=== PATIENT | female | born 1930 | race Caucasian/White ===

== ENCOUNTER 2017-01-28 23:00 | Inpatient (IN) | payer MEDICARE ==
[~2017-01-28] VITALS: Ht 165.1 cm; Wt 76.8 kg
--- NOTE | ~2017-01-28 | OR ---
PATIENT'S NAME: LYLE SOLIZ [facility] AGE: 86 Y [address] 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 PROCEDURE PERFORMED: Closed reduction of posterior dislocation of right total hip arthroplasty under anesthesia. ANESTHESIA: Propofol. COMPLICATIONS: None. INDICATION FOR PROCEDURE: The patient is an 86-year-old female who underwent a primary right total hip arthroplasty with Dr. Rikki Walker approximately 25 years ago. Her hip has served her very well until she sustained a dislocation in October. Her first dislocation was reduced in [place], [place]. Her hip dislocated a second time day before yesterday. She was transported to [place] by ambulance and her hip was reduced under anesthesia by Dr. Martin Singh. She was placed into a knee immobilizer. She states that the knee immobilizer did not stay up and are currently slid down to her farrell. She dislocated again this afternoon while bending forward on the toilet. She was transported here by ambulance. Physical examination and radiographs confirm a recurrent posterior dislocation. Postreduction radiographs from earlier this week demonstrate severe polyethylene wear of her acetabular component. Risks, benefits, limitations, and alternatives to closed reduction have been reviewed by, and informed consent has been granted. I have informed the patient of the potential for iatrogenic fracture. I have also informed the patient that she is at high-risk for recurrent dislocations (based upon the fact that she has dislocated 3 times in the past 3 months), and she understands that we will have further discussions regarding the option of proceeding with revision total hip arthroplasty in the near future. DESCRIPTION OF PROCEDURE: The patient positioned supine. Propofol anesthesia PATIENT'S NAME: LYLE SOLIZ [facility] AGE: 86 Y [address] ROOM: [place] [address] LOCATION: [facility] ADMIT DATE: 01/28/2017 OR/Procedure Report DISCHARGE DATE: FAMILY PHYSICIAN: PHYSICIAN, UNKNOWN ATTENDING PHYSICIAN: ROCAEL LYNNE was administered by the nurse communication and outreach manager. The hip was subsequently flexed to 90 degrees and internally rotated. After this, an anteriorly directed distraction force was applied. The femoral head readily cleared the posterior aspect of the acetabulum and reduced. There was no residual rotational deformity. Appropriate leg length was restored. Mild crepitation was noted with passive range of motion of the hip. The hip was examined under anesthesia to assess the extent of instability. With the hip flexed to 90 degrees and in 0 degrees of abduction, the hip could be internally rotated to only 10 degrees before it dislocated posteriorly. An identical reduction maneuver was performed and postreduction radiographs demonstrated reduction. Minimal force was required. There was no fracture. The patient was placed into a knee immobilizer. Discussions were held (with the patient in the presence of both daughters) regarding the option of admission for a prompt revision (given her perceived extremely high-risk for recurrent dislocation) versus discharge to home with readmission in the near future. They were strongly in favor of being admitted and revised as soon as possible. MD MANPREET BENITEZ/modl /[id number] d: 01/29/17 0403 t: 02/07/17 1207, OPERATIVE SUMMARY
--- NOTE | ~2017-01-28 | OR ---
PATIENT'S NAME: LYLE STEWARD [facility] AGE: 86 Y [address] ROOM: [place] [address] LOCATION: [facility] ADMIT DATE: 01/28/2017 OR/Procedure Report DISCHARGE DATE: 02/02/2017 FAMILY PHYSICIAN: ATIF GODINEZ MD ATTENDING PHYSICIAN: ROCAEL LYNNE SURGEON: Rocael Lynne MD TRANSMISSION ENGINEER: Martinez Cotter CST/PHU and Rocael Krishna. DATE OF PROCEDURE: 01/30/2017 Corrected DOS 02/11/17 AO PREOPERATIVE DIAGNOSIS: Mechanical failure, right total hip arthroplasty (severe polyethylene wear with fractured polyethylene liner and recurrent right hip dislocations). 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 PROCEDURE PERFORMED: Revision right total hip arthroplasty (revision of femoral head and acetabular liner). Extensive right hip synovectomy. Debridement of osteolysis of right proximal femur. ANESTHESIA: Spinal plus subcutaneous and periarticular local anesthesia (ropivacaine with epinephrine). ESTIMATED BLOOD LOSS: Less than 200 mL. DRAINS: None. SPECIMEN: Synovial fluid for culture. COMPLICATIONS: None. EXPLANTS: 32 mm diameter femoral head with +5 mm neck length. APR enhanced hooded acetabular polyethylene liner. IMPLANTS: Intermedics APR hooded enhanced protrusio acetabular polyethylene liner with 32 mm inner diameter. 32 mm diameter femoral head with +10 mm neck length. INDICATION FOR PROCEDURE: Ms. Steward is an 86-year-old female, who underwent a primary right total hip arthroplasty with Dr. Rikki Walker in January of 1991. Her hip did very well until this year. She has dislocated her right hip 3 times since October of this year (including 2 dislocations this week). Her PATIENT'S NAME: LYLE STEWARD [facility] AGE: 86 Y [address] ROOM: [place] [address] LOCATION: [facility] ADMIT DATE: 01/28/2017 OR/Procedure Report DISCHARGE DATE: 02/02/2017 FAMILY PHYSICIAN: ATIF GODINEZ MD ATTENDING PHYSICIAN: ROCAEL LYNNE hip was completely asymptomatic (with no history of prior dislocation) except for a fall in July of 2016. She had transient right hip pain at that time, but she did not dislocate at that time. Radiographs demonstrate severe polyethylene wear. When I examined her right hip under anesthesia (night before last), it was grossly unstable. Furthermore, there was crepitation with range of motion (suggesting fracture of the polyethylene liner). She has well-fixed uncemented Intermedics APR implants. There is no significant osteolysis noted on plain radiographs. Risks, benefits, limitations, and alternatives to this procedure have been thoroughly reviewed, and informed consent has been granted. We have specifically reviewed risks and implications of infection, deep venous thrombosis, pulmonary embolism, mortality, leg-length discrepancy, instability, blood transfusion risks, and the potential need for further surgery. Informed consent has been granted. DESCRIPTION OF PROCEDURE: The patient was positioned supine. Prophylactic antibiotics and spinal anesthesia were administered. The right hip was examined under anesthesia. At 90 degrees of flexion and 0 degrees of abduction, the hip could be internally rotated to only 10 degrees before there was posterior dislocation. The hip could be readily reduced. The patient was positioned in a left lateral decubitus position with the left leg well padded and an axillary roll in place. The pelvis was locked perpendicularly to the floor. The right hip and right lower extremity were prepped and draped with vigilant sterile technique. The right hip was approached through the preexisting oblique posterolateral scar. Nonresorbable suture material was noted at the iliotibial band and gluteus jessica fascia. The fascia was divided in line with a preexisting nonresorbable suture. Visible remnants of nonresorbable suture were removed. There was a large amount of serosanguineous fluid deep to the fascia. This was cultured. This was nonpurulent. The hematoma was evacuated. There was an abundant amount of renteria-colored proliferative synovitis throughout the joint space. An extensive synovectomy was performed. There were several small fragments of polyethylene noted within the joint space. These were evacuated. There was severe thinning of the superior aspect of the polyethylene liner and a 1 cm long missing segment of the hooded section of the liner between the 9 o'clock and 10 o'clock positions. There was a mild amount of motion between the liner and the shell. The hip had been posteriorly dislocated and the femoral head extracted. The PATIENT'S NAME: LYLE STEWARD [facility] AGE: 86 Y [address] ROOM: [address] [place] [id number] LOC[facility] ADMIT DATE: 01/28/2017 OR/Procedure Report DISCHARGE DATE: 02/02/2017 FAMILY PHYSICIAN: ATIF GODINEZ MD ATTENDING PHYSICIAN: ROCAEL LYNNE trunnion was mobilized anterosuperior to the acetabulum. Circumferential acetabular exposure was obtained. The liner was extracted using a screw technique. There was no significant pelvic osteolysis. There was a moderate amount of contained osteolysis within the greater trochanter. Acetabular and femoral interfaces were inspected. The components were confirmed to be well fixed and well aligned. Trial reductions were performed with the hooded trial 32 liner and the hooded protrusio trial liner. There was a moderate amount of ligamentous laxity with the +10 head and the non-protrusio liner. Stability was optimized with the hooded protrusio liner and the +10 neck length. The final liner was impacted into position with the tyler centered at the 9 o'clock position (where the tyler of the initial implant had been centered). There was excellent circumferential visualization of the locking mechanism to confirm adequate deployment. The osteolytic region within the greater trochanter had been thoroughly debrided. The trunnion was thoroughly cleansed and dried prior to impacting the final head into position. A final reduction was performed. After this, the hip could not be anteriorly subluxated with firm external rotation in full extension and 0 degrees of abduction. In neutral rotation and 0 degrees of abduction, the hip could be hyperflexed to 130 degrees without instability. At 90 degrees of flexion and 0 degrees of abduction, the hip could be internally rotated to 50 degrees before there was any hint of posterior subluxation. This was dramatically improved compared to preoperatively. The entire joint space was thoroughly irrigated with bacteriostatic pulsatile saline lavage several times throughout the case. It should be noted that there was no residual posterior capsule noted upon approaching the hip. It should also be noted that the sciatic nerve was vigilantly protected throughout the entire case. The fascia was closed with multiple simple interrupted #1 Ethibond sutures and #1 Vicryl sutures. Subcutaneous tissues were thoroughly irrigated and subsequently reapproximated with simple deep interrupted 0 Vicryl. The skin was closed with superficial buried interrupted 2-0 Vicryl followed by a running subcuticular 3-0 Monocryl suture, followed by Dermabond, followed by Steri-Strips with benzoin. PATIENT'S NAME: LYLE STEWARD [facility] AGE: 86 Y [address] ROOM: [place] [address] LOCATION: [facility] ADMIT DATE: 01/28/2017 OR/Procedure Report DISCHARGE DATE: 02/02/2017 FAMILY PHYSICIAN: ATIF GODINEZ MD ATTENDING PHYSICIAN: ROCAEL LYNNE The dressing consisted of an occlusive Mepilex dressing. The patient was transported to the post-anesthesia care unit in stable, comfortable condition. There were no complications. MD MANPREET BENITEZ/luannel /[id number] Corrected DOS 02/11/17 AO d: 01/31/17 0531 t: 02/13/17 1748, OPERATIVE SUMMARY
--- NOTE | ~2017-01-28 | CON ---
PATIENT'S NAME: LYLE STEWARD [facility] AGE: 86 Y [address] ROOM: [place] [address] LOCATION: [facility] ADMIT DATE: 01/28/2017 Consultation DISCHARGE DATE: FAMILY PHYSICIAN: PHYSICIAN, UNKNOWN ATTENDING PHYSICIAN: ROCAEL LYNNE DATE OF CONSULTATION: 01/29/2017 REFERRING PHYSICIAN: Rocael Lynne MD CONSULTING PHYSICIAN: Dr. Unger. REASON FOR CONSULTATION: Preoperative optimization. HISTORY OF PRESENT ILLNESS: The patient is an 86-year-old female, who has sustained several dislocations of her right total hip in the last 2 weeks. At this point, a revision of the total hip arthroplasty is planned and a Medicine consult was requested. The patient is quite alert, but not the best historian. She does tell me that she has a history of coronary artery disease, status post acute coronary syndrome in 2002. Also, has a pacemaker and is on anticoagulation though she is not sure for what. When asked about shortness of breath or chest pain, she does endorse occasional chest pain for which she does not seek care. It is difficult to ascertain the quality or the circumstances that are associated with this symptom. REVIEW OF SYSTEMS: All 10 systems have been reviewed and negative aside from pertinent positives as mentioned above. PAST MEDICAL HISTORY: Significant for: 1. Acute coronary syndrome. 2. Coronary artery disease. 3. Long-term use of anticoagulants, not sure for what. 4. Pacemaker. 5. Bilateral total hips and total knees. 6. History of cholecystectomy. SOCIAL HISTORY: Negative for any history of ongoing toxic habits. CURRENT MEDICATIONS: PATIENT'S NAME: LYLE STEWARD [facility] AGE: 86 Y [address] ROOM: [place] [address] LOCATION: [facility] ADMIT DATE: 01/28/2017 Consultation DISCHARGE DATE: FAMILY PHYSICIAN: PHYSICIAN, UNKNOWN ATTENDING PHYSICIAN: ROCAEL LYNNE Still being compiled. FAMILY HISTORY: Reviewed and is noncontributory due to advanced age and multiple medical problems. PHYSICAL EXAMINATION: VITAL SIGNS: Temperature 98.3, pulse is 69, respirations of 16, blood pressure 144/67, saturating 95% on room air. GENERAL: Appears as a well-developed, well-nourished, very pleasant, elderly female, in no acute distress. NEUROLOGICAL: Nonfocal/ HEENT: Eye exam shows pupils are equal and reactive to light. LYMPHATIC: Shows no cervical lymphadenopathy. ENDOCRINE: Shows no thyromegaly. LUNGS: Clear to auscultation in all [place]. HEART: Rate is regular. No appreciable murmurs, gallops, or rubs. ABDOMEN: Soft, nontender. : No costovertebral angle tenderness. VASCULAR EXAM: 2+ pedal pulses. MUSCULOSKELETAL: Deferred. SKIN: Warm and dry. PSYCHIATRIC: Appropriate mood, cognition, and affect. LABORATORY DATA: Studies performed in the hospital for significant potassium of 3.4, unremarkable CBC. INR of 2.34. IMPRESSION AND RECOMMENDATIONS: This is an 86-year-old female, who is admitted in anticipation of revision of right total hip arthroplasty. Prior to proceeding with surgery, the following issues need to be addressed. 1. Coronary history and endorsement of occasional chest pain. The patient will require further cardiac optimization. We will request her records from her primary dental office receptionist in [facility]. I will consider additional testing based on those records. 2. Hypokalemia: we will replete her potassium. 3. Long-term use of anticoagulants. We will put her Coumadin on hold and repeat her INR tomorrow evening. If the INR is still therapeutic, we will provide her with reversal agents. 4. Additional management will depend on clinical course. Thank you for involving us in the care of Mrs. Steward. Time dedicated to this patient's consultations is 35 minutes. PATIENT'S NAME: LYLE STEWARD [facility] AGE: 86 Y [address] ROOM: [place] [address] LOCATION: [facility] ADMIT DATE: 01/28/2017 Consultation DISCHARGE DATE: FAMILY PHYSICIAN: PHYSICIAN, UNKNOWN ATTENDING PHYSICIAN: ROCAEL LYNNE MD TREVOR OREILLY/seema /[id number] d: 01/29/17 0731 t: 02/08/17 0345, CONSULTATION REPORT
--- NOTE | ~2017-01-28 | DS ---
PATIENT'S NAME: LYLE SOLIZ [facility] AGE: 86 Y [address] 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 SECONDARY DIAGNOSES: 1. Hypertension. 2. Atrial fibrillation. 3. Irritable bowel syndrome. 4. Hiatal hernia. PROCEDURE PERFORMED: Right revision total hip arthroplasty. HISTORY: The patient is an 86-year-old female, who presents with mechanical failure of right total hip arthroplasty (recurrent dislocations) and associated severely compromised activities of daily living. The patient has decided to proceed with total right hip arthroplasty after having been thoroughly counseled regarding the risks, benefits, limitations and alternatives. Please refer to the outpatient clinic notes and admission history and physical for this patient. HOSPITAL COURSE: The patient underwent a total right hip arthroplasty on 01/28/2017 without complications. Spinal plus subcutaneous and periarticular local anesthesia was utilized. The patient received 24 hours of perioperative prophylactic antibiotics and remained hemodynamically stable, neurovascularly intact throughout the entire hospital course. The postoperative prophylactic deep venous thrombosis prophylaxis consisted of Coumadin, early mobilization and pneumatic compression devices. Daily physical therapy for gait training, transfer training, and reinforcement of hip dislocation precautions were received. The patient progressed well in physical therapy. On the date of discharge, 02/02/2017, the incision at the hip was healing well and showed no signs of infection. DISPOSITION: Swing bed. DISCHARGE ACTIVITY: The patient is to bear weight as tolerated with strict hip dislocation precautions as instructed. There are to be no dressing changes. Dr. Enriquez is to be notified immediately if there is any increased pain, fevers, chills, erythema or drainage. DISCHARGE MEDICATIONS: PATIENT'S NAME: LYLE SOLIZ [facility] AGE: 86 Y [address] ROOM: [place] [address] LOCATION: [facility] ADMIT DATE: 01/28/2017 Discharge Summary DISCHARGE DATE: 02/02/2017 FAMILY PHYSICIAN: ATIF GODINEZ ATTENDING PHYSICIAN: Orlando Enriquez 1. Warfarin 2.5 mg one tab p.o. daily. 2. [place] 5/325 mg 1-2 tabs p.o. every 4 hours p.r.n. for pain. 3. She was then instructed to continue all her other pre-admission medications as instructed by her internal medicine doctor. FOLLOWUP: Followup appointment is to be with Dr. Enriquez's office 1 week subsequent to dismissal for her initial postoperative evaluation at that time. ASIF COVARRUBIAS PA-C FOR MD CHRISTIANO BENITEZW/modl /[id number] d: 02/06/17 1057 t: 02/10/17 0833, DISCHARGE SUMMARY
--- NOTE | ~2017-01-28 | HP ---
PATIENT'S NAME: LYLE STEWARD [facility] AGE: 86 Y [address] ROOM: [id number] [place], [place] [address] LOCATION: [facility] [place] ADMIT DATE: 01/28/2017 History & Physical DISCHARGE DATE: FAMILY PHYSICIAN: PHYSICIAN, UNKNOWN ATTENDING PHYSICIAN: ROCAEL LYNNE DATE OF SERVICE: HISTORY OF PRESENT ILLNESS: Mrs. 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 This is her third dislocation of her right total hip arthroplasty. She underwent a primary right total hip arthroplasty with Dr. Rikki Walker (here in [place]) 25-30 years ago. Her right hip has functioned well until October of this year when she was leaning forward (in a seated position) to put on her shoes. That dislocation was reduced in [place], [place] by the emergency room physician. Her hip dislocated a second time, the day before yesterday when she was leaning forward while sitting on the edge of her bed. She was transferred to [place] (by ambulance), and her hip dislocation was reduced by Dr. Martin Singh. She was placed into a short knee immobilizer. She states that this has been recurrently sliding down her leg (thus, not keeping her knee in a fully extended position). She was actually wearing this brace (around her farrell) when her hip dislocated today. Her hip has been pain-free between her 3 recent dislocations. She recalls having fallen in July. She experienced transient pain in the right hip at that time, but there was no sense of instability. Her past orthopedic history is also significant for having undergone bilateral total knee arthroplasties (she believes that these were both performed in [place]) and a left total hip arthroplasty (approximately 10 years ago in [place]). She has had no difficulties with either knee or her left hip. At baseline, she lives independently. She uses a walker for balance at baseline. She denies numbness or paresthesias in either lower extremity. She is accompanied by both daughters. ALLERGIES: NO KNOWN DRUG ALLERGIES. MEDICATIONS: PATIENT'S NAME: LYLE STEWARD [facility] AGE: 86 Y [address] ROOM: [place] [address] LOCATION: [facility] [place] ADMIT DATE: 01/28/2017 History & Physical DISCHARGE DATE: FAMILY PHYSICIAN: PHYSICIAN, UNKNOWN ATTENDING PHYSICIAN: ROCAEL LYNNE On admission include Coumadin. PAST SURGICAL HISTORY: Bilateral total knee replacements. Bilateral total hip replacements (right performed by Dr. Rikki Walker and left performed by an unspecified surgeon in [place]). REVIEW OF SYSTEMS: She denies chest pain or shortness of breath. She denies history of deep venous thrombosis. She denies history of infection in either hip or either knee. PHYSICAL EXAMINATION: GENERAL: The patient is an alert, oriented, well-hydrated, well-nourished, pleasant, cooperative female, who is in no distress. She is a reliable historian. EXTREMITIES: The right lower extremity is flexed, abducted, and internally rotated at the hip. There is a well-healed posterolateral scar at the right hip. There is no calf swelling or tenderness in either lower extremity. She is able to actively dorsiflex and plantar flex the right ankle with 5/5 motor strength. 1+ dorsalis pedis pulse on the right. RADIOGRAPHS: Right hip radiograph demonstrated a dislocated, uncemented, right total hip arthroplasty. The femoral and acetabular components are uncemented. There is no periprosthetic fracture. There are no radiolucencies. Postreduction radiographs of the hip from day before yesterday demonstrate eccentricity of the femoral head within the acetabular liner consistent with severe polyethylene wear. There is no metallosis. There is no fracture. 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 RECOMMENDATIONS: I recommended and performed a closed reduction under anesthesia. Please refer to the separately dictated procedure note. I discussed the options of admitting the patient to undergo prompt revision versus the option of placing her in a lengthier knee immobilizer and bringing her back into the hospital at a later date. The patient and her daughters are in favor of proceeding with revision sooner rather than later. They are (understandably) fearful of a recurrent dislocation. These factors (combined with how unstable the hip is when examined under PATIENT'S NAME: LYLE STEWARD [facility] AGE: 86 Y [address] ROOM: [address] [address] LOCATION: [facility] [place] ADMIT DATE: 01/28/2017 History & Physical DISCHARGE DATE: FAMILY PHYSICIAN: PHYSICIAN, UNKNOWN ATTENDING PHYSICIAN: ROCAEL LYNNE anesthesia), have led to a mutual decision to admit her. Her anticoagulated status will need to be reversed. Prior to the patient's arrival in the hospital (while she was in transport), I contacted the salesperson household appliances to investigate the prosthetic type. I have requested that implant stickers be obtained. This appears to be an [employer] APR implant. I have contacted the implant rep from [employer] and requested his assistance obtaining compatible femoral heads and liners. I have informed the patient and her daughters that surgery could conceivably consist of femoral head and acetabular liner exchange alone. However, I have expressed concern that this might not provide adequate stability and that, therefore, revision of the entire acetabular component (and possibly the femoral component) may be necessary in order to restore acceptable stability. They understand and accept this. I make note of the fact that the patient already has a skirted femoral head. I have discussed technical aspects of surgery as well as risks and limitations thereof. We have specifically discussed the potential for infection, deep venous thrombosis, pulmonary embolism, recurrent wear and/or loosening, and/or instability, leg length discrepancy, blood transfusion risks, and the potential need for further surgery. Informed consent has been granted. The patient has been admitted and placed at bedrest. Mechanical DVT prophylaxis and incentive spirometry have been initiated. Coumadin will be held. Surgery has been tentatively scheduled for day after tomorrow, but I have emphasized that compatible implant parts might not be obtained in time to proceed with surgery on that date. The patient and her daughters understand and accept this. Internal Medicine consultation has been requested (from the Hospitalist Service) for management of the patient's anticoagulation, as well as for preoperative and perioperative medical management and optimization. MD MANPREET BENITEZ/seema /[id number] D: [id number] T: [id number] HISTORY & PHYSICAL
--- NOTE | ~2017-01-28 | ER ---
PATIENT'S NAME: LYLE SOLIZ [facility] AGE: 86 Y [address] ROOM: [place] [address] LOCATION: [facility] ADMIT DATE: 01/28/2017 ER/Outpatient Report DISCHARGE DATE: FAMILY PHYSICIAN: PHYSICIAN, UNKNOWN ATTENDING PHYSICIAN: ROCAEL LYNNE CHIEF COMPLAINT: Right hip pain. HISTORY OF PRESENT ILLNESS: The patient arrived per [facility], states she was sitting on the toilet attempting to wipe herself, when her right hip went out again. She states she did have a knee immobilizer on. She was here in the ER on 01/27/2017, seen by Dr. Singh at that time for dislocated hip. She states that she had both her hips done quite some years ago, not sure; one was done approximately 25 years and one done probably 10 years ago. She denies any other injury. She states she does have some general discomfort of that hip, but does not have the spasming as she did on Thursday. PAST MEDICAL HISTORY: Hypertension, atrial fib, irritable bowel syndrome, and hiatal hernia. PAST SURGERIES: Pacemaker, bilateral hip arthroplasty, bilateral knee arthroplasty, cholecystectomy, bunion repair, hammertoe repair, cataracts. CURRENT MEDICATIONS: On the chart and reviewed by me. ALLERGIES: ON THE CHART AND REVIEWED BY ME. ROS: All negative other than those mentioned in the HPI. PHYSICAL EXAMINATION: VITAL SIGNS: Blood pressure is 136/94, pulse is 72, respirations 20, O2 saturations 100% on room air. GENERAL: She is awake, alert, and oriented x4. SKIN: [place], warm, and dry. RESPIRATIONS: Even and nonlabored. LUNGS: Lung sounds were clear throughout. HEART: Regular rate and rhythm. ABDOMEN: Soft and nondistended. Bowel sounds are present. EXTREMITIES: She has shortening and rotation of the right leg. She has PATIENT'S NAME: LYLE SOLIZ [facility] AGE: 86 Y [address] ROOM: [place] [address] LOCATION: [facility] ADMIT DATE: 01/28/2017 ER/Outpatient Report DISCHARGE DATE: FAMILY PHYSICIAN: PHYSICIAN, UNKNOWN ATTENDING PHYSICIAN: ROCAEL LYNNE strong pedal pulses bilaterally. IMPRESSION: Dislocated right hip. PLAN: Dr. Lynne had accepted this patient. He was contacted to come in and see the patient. Please see his dictation. The patient will be admitted per Dr. Lynne. DALIA SCHERER APRN FOR MD TALHA GUALLPA/modl /[id number] d: 01/29/17 0430 t: 02/03/17 1829, OUTPATIENT REPORT
[2017-01-29 01:27] LABS: BASOPHIL % 0.3 %; EOSINOPHIL # 0.1 K/uL (0.0-0.5); HEMATOCRIT 40.3 % (30.0-46.0); HEMOGLOBIN 13.7 g/dL (10.0-15.0); IMMATURE GRANULOCYTE % 0.3 %; LYMPHOCYTE # 2.6 K/uL (0.8-4.0); LYMPHOCYTE % 26.7 %; MCH 31.9 pg (27.0-34.0); MCV 93.7 fl (83.0-98.0); MONOCYTE # 0.8 K/uL (0.0-1.0); MONOCYTE % 7.8 %; MPV 10.3 fl (9.4-12.4); NEUTROPHIL # (ANC) 6.1 K/uL (1.8-7.8); NEUTROPHIL % 63.9 %; NRBC % 0 /100WBC (0-0.00); PLATELET COUNT 207 K/uL (150-450); RDW-CV 12.8 % (11.9-14.6); WBC 9.6 K/uL (4.0-11.0)
[2017-01-29 01:42] LABS: ALBUMIN 3.3 gm/dL (3.5-5.0); ANION GAP 9.2 (10.0-19.0); CALCIUM 8.6 mg/dL (8.5-10.5); CREATININE 0.9 mg/dL (0.5-1.1); POTASSIUM 3.2 mMol/L (3.7-5.1)
[2017-01-29 01:57] LABS: INR - (THERAPEUTIC) 2.34 (0.92-1.07); PROTIME 24.8 SECONDS (9.8-11.4); PTT 40 SECONDS (25-32)
--- NOTE | 2017-01-29 04:50 | NUR ---
86 YEAR OLD FEMALE. HX OF RIGHT HIP REPLACEMENT 30 YRS AGO, LEFT HIP REPLACEMENT 5 YEARS AGO, BILATERAL KNEE REPLACEMENTS 6 YEARS AGO, GALLBLADDER REMOVED, BILATERAL CATARACTS, PACEMAKER, HX AFIB, HTN, COLON CANCER 4 YEARS AGO, OSTEOPOROSIS. ON FRIDAY 01/26 SHE DISLOCATED HER RIGHT HIP AND CAME TO THE ER WHERE DR. RODGERS RELOCATED THE HIP. ON 01/28 SHE FELL IN THE BATHROOM AND DISLOCATED HER RIGHT HIP AGAIN. SHE CAME BACK TO THE ER AND DR. LYNNE RELOCATED HER HIP. PLAN IS SURGERY THURSDAY TO REPLACE HIP. NO KNOWN ALLERGIES. LIVES ALONE IN A SINGLE LEVEL HOME WITH 5 STEPS TO THE FRONT DOOR.
--- NOTE | 2017-01-29 04:58 | NUR ---
Significant Event: A/OX3. DENIES NUMBNESS AND TINGLING. MOVES ALL EXTREMITIES SPONTANEOUSLY AND TO COMMAND. VSS ON ROOM AIR. PACED RHYTHM. LAST BM 01/28. BEDREST. VOIDS PER BEDPAN. PLACE DESAI BEFORE SURGERY. SCDs INTACT. COCCYX AREA RED WITH SCABS - NO OPEN AREAS. [place] APPLIED. Q2 P[place]ILLA. IV TO RIGHT HAND RUNNING D5NS AT 80/HR. REGULAR DIET. NPO AT MIDNIGHT ON 01/29. EKG AND CHEST XRAY THIS AM TO CLEAR FOR SURGERY THURSDAY. NO COMPLAINTS OF PAIN. IMMOBILIZER TO RIGHT LEG. PO POTASSIUM GIVEN. Follow up:
[2017-01-29 07:56] LABS: BILIRUBIN URINE NEGATIVE (NEGATIVE); BLOOD URINE 25 /UL (NEGATIVE); COLOR URINE YELLOW (YELLOW); GLUCOSE URINE NEGATIVE (NEGATIVE); KETONE URINE NEGATIVE (NEGATIVE); LEUKOCYTES URINE NEGATIVE /UL (NEGATIVE); NITRITE URINE NEGATIVE (NEGATIVE); PROTEIN URINE NEGATIVE (NEGATIVE); TURBIDITY URINE 1+ (CLEAR); UROBILINOGEN URINE NORMAL (NORMAL)
[2017-01-29 08:02] LABS: AMORPHOUS URINE 1+ (NEGATIVE); BACTERIA URINE FEW (NEGATIVE); MUCUS URINE 1+ (NEGATIVE)
[2017-01-29] MEDS ORDERED: ASPIRIN LO-DOSE81 MG PO (08:10)
[2017-01-29] MEDS ORDERED: FISH OIL 1,2001 EACH PO (08:10)
[2017-01-29] MEDS ORDERED: CERTAVITE SR-A1 EACH PO (08:10)
[2017-01-29] MEDS ORDERED: HYDRODIURIL25 MG PO (08:11)
[2017-01-29] MEDS ORDERED: GLUCOSA-CHOND-1 EACH PO (08:11)
[2017-01-29] MEDS ORDERED: LOPRESSOR25 MG PO ×2 (08:12)
[2017-01-29] MEDS ORDERED: MIRALAX17 GM PO (08:12)
[2017-01-29] MEDS ORDERED: POTASSIUM600 MG PO (08:13)
[2017-01-29] MEDS ORDERED: CORDARONE,PACE200 MG PO (08:14)
[2017-01-29] MEDS ORDERED: PRINIVIL (ZESTR20 MG PO (08:14)
[2017-01-29] MEDS ORDERED: LIPITOR10 MG PO (08:14)
[2017-01-29] MEDS ORDERED: COUMADIN **IA2.5 MG PO ×2 (08:15→08:16)
[2017-01-29] MEDS ORDERED: PROTONIX40 MG PO (08:17)
--- NOTE | 2017-01-29 15:31 | NUR ---
Introduced self and role of care management to patient and daughter. She lives by herself in [facility]. She states that she is normally able to do all her own ADL's. She has a son that does check on her daily. We discussed discharge options. Those being home with family support vs swingbed. She and her daughter would like me to send a referral to the [facility] incase she would need to have a skilled stay. I called and spoke with [facility] coordinator. Will fax referral information. Will continue to follow.
--- NOTE | 2017-01-29 16:52 | NUR ---
Significant Event:VSS, A/O X 3, RATES PAIN 3/10, DENIES NEED FOR PRN MED UNTIL BEDTIME. D5NS @80/HR INFUSING TO R HAND. CSM TO LOWER EXTREMITIES WNL, GOOD SENSATION. IMMOBILIZER ON TO R LEG AT ALL TIMES. PT REPORTS HER FEET ARE CHRONICALLY NUMB, NO CHANGES. PT VOIDS PER BEDPAN, REFUSED DESAI CATHETER. DID TELL PT SHE MIGHT NEED ONE PRIOR TO OR. PT INR 2.34 TODAY, RECHECK IN A.M. VITAMIN K 2.5MG PO AT 1710 TODAY. Follow up:
--- NOTE | 2017-01-30 02:34 | NUR ---
Significant Event: Patient is alert and oriented x 3. Has chronic numbness to bilateral feet. States pain is tolerable. Did have one [place] at bedtime and is utilizing a Kpad for back pain. Moves spontaneously and follows commands. May get up to restroom with immobilizer on. Did this x 1 with 1PA, gait belt, walker. Used the bedpan later. PERRL. Moderate strength. 2+ pulses. VSS. Paced. Afebrile. HTN. Home medications addressed this shift. D5NS infusing to right hand at 80 mL/hr with no complications. Continues to refuse motley insertion at this time r/t risk for infection. On room air. Lungs clear. Works on IS independently. Bowel sounds active. Pleasant and cooperative with cares. NPO since midnight for surgery today. INR this morning needs called to the hospitalist. Follow up: pain management, surgery this morning, NPO
[2017-01-30 05:32] LABS: INR - (THERAPEUTIC) 1.7 (0.92-1.07); PROTIME 17.9 SECONDS (9.8-11.4)
[2017-01-30 09:05] LABS: INR - (THERAPEUTIC) 1.41 (0.92-1.07); PROTIME 14.9 SECONDS (9.8-11.4)
--- NOTE | 2017-01-30 17:04 | NUR ---
Significant Event: Pt went to OR @ 0800, returned @ 1640. Received 1 unit FFP preop. Mepilex dressing c/d/i. Icebag to hip. Family @ bedside. Pillows between knees. [place] @ 1615, had a spinal. Just starting to wiggle toes. Refused motley preop, no void postop. Follow up:
[2017-01-31 04:52] LABS: HEMATOCRIT 36.2 % (30.0-46.0); HEMOGLOBIN 12.3 g/dL (10.0-15.0)
[2017-01-31 05:00] LABS: INR - (THERAPEUTIC) 1.3 (0.92-1.07); PROTIME 13.7 SECONDS (9.8-11.4)
--- NOTE | 2017-01-31 05:34 | NUR ---
Significant Event: Alert and oriented X3. Hypertensive with SBP's raning 136-166. Has pacemaker. Sats >90% on RA. Lungs are clear and diminished. Bowel sounds active. Voiding without difficulty. Large incontinence X1. Pt requests to wear her peripads and underwear. Mepilex dressing it R) hip is CDI. Ice applied. 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 LR @ 90 ml/hr to L) FA. Pain well controlled with percocet last given at 0340. Up to bedside commode with 1 assist, gait belt and walker. WBAT. Follow up:
--- NOTE | 2017-01-31 17:43 | NUR ---
Pt alert and oriented. She has pain up to 3. [place] x2 last at 1410. Wants to take it about every 4 hrs. Mepilex dressing is dry and intact to hip. She does well with hip precautions, but remind pt. CSM WNL except old numbness and tingling hands and feet. Pt on room air. She has voided in bathroom x3 and medium stool this kaylyn. Up in chair at this time. Also amb in [place] earlier with PT and did well. Family here all shift. Pt has good appetite. 2 saline locks
--- NOTE | 2017-02-01 04:40 | NUR ---
Significant Event: A&Ox3, VSS on room air. 1L O2 applied during middle of night for O2 SATS into mid 80s. [place] given Q4hrs for pain. Dressing C/D/I. Up to bathroom with 1PA, walker/GB. Taking in good PO. Pleasant and cooperative with cares. Follow up: to [facility] swing bed on thursday.
[2017-02-01 04:44] LABS: INR - (THERAPEUTIC) 2.65 (0.92-1.07); PROTIME 28.1 SECONDS (9.8-11.4)
[2017-02-01 04:48] LABS: ALBUMIN 2.6 gm/dL (3.5-5.0); ANION GAP 10.5 (10.0-19.0); CALCIUM 8.1 mg/dL (8.5-10.5); CREATININE 0.9 mg/dL (0.5-1.1); PHOSPHORUS 2.2 mg/dL (2.5-4.9); POTASSIUM 4.5 mMol/L (3.7-5.1)
--- NOTE | 2017-02-01 16:09 | NUR ---
Significant Event: PT A&O x3, slightly forgetful at times. VSS, on room air. Dressing to R)hip, c/d/i. Pain well controlled with norco 1 tab last at 1340. PT ambulates with walker, gait belt and 1 assist. Voiding without difficulties, mirilax given-no resultes yet. Possible transfer to swingbed or dc to home tomorrow. Follow up:
--- NOTE | 2017-02-02 03:31 | NUR ---
Pt A&Ox3, VSS on RA. Voiding and taking PO without difficulty. CSM/neuros intact. Dressing to right hip CDI. Up with 1A GB and walker. Pain well controlled with PRN norco, tyleonl. Pt pleasant and cooperative with cares.
[2017-02-02 05:10] LABS: INR - (THERAPEUTIC) 3.29 (0.92-1.07)
--- NOTE | 2017-02-02 13:18 | NUR ---
Social visit with patient and daughter today. I updated them that I had called and left messages with Iram at [facility] x2 and faxed updated referral information. Am waiting to hear back from Iram.
--- NOTE | 2017-02-02 14:46 | NUR ---
Significant Event: AOx3. VSS. CSM WNL. Dressing to R) hip is C/D/I. Up with 1 assist with walker. Had large BM. L)FA IV SL. INR is 3.29- hold coumadin. Suppose to transfer to [place] swing bed today or tomorrow. Takes [place] for pain. On RA. Follow up:
--- NOTE | 2017-02-02 15:38 | NUR ---
Significant Event: 86 [address] of Dr. Enriquez. Patient had fallen on 01/26/17 and dislocated R) hip. Patient came into to ER and got it put back into place. THen on 01/28/17 she fell again and dislocated. Dr. Enriquez replace R) hip on 01/30/17. Patient is on POD #3. On RA. Mepilex dressing C/D/I. VSS. CSM WNL. Up with 1 assist with walker and gait belt. NO problems voiding. Had Large BM this morning. [place] 1 tab given prior to transfer. Regular diet. Follow up:
== END 2017-02-02 16:26 | DRG 470 ==
LOC: GMED 23:00 → GNTU 23:49
PROVIDERS: Internal Medicine; ADMIT Orthopaedic Surgery
PROC: 0SR9029 Replacement of Right Hip Joint with Metal on Polyethylene Synthetic Substitute, Cemented, Open Approach (ICD-10-PCS; principal; 2017-01-28)
DX: T84.020A Dislocation of internal right hip prosthesis, initial encounter (principal); I48.0 Paroxysmal atrial fibrillation; I10 Essential (primary) hypertension; E78.5 Hyperlipidemia, unspecified; E87.6 Hypokalemia; I25.10 Atherosclerotic heart disease of native coronary artery without angina pectoris; Z79.01 Long term (current) use of anticoagulants; H26.9 Unspecified cataract; K58.9 Irritable bowel syndrome, unspecified; Z96.653 Presence of artificial knee joint, bilateral; Z95.0 Presence of cardiac pacemaker
CPT/HCPCS: A9270; C1776; J0690; J1100; J1885; J2250; J2795; J7030; J7040; J7042; J7050; J7120; P9017